=== PATIENT | female | born 1995 | race Caucasian/White ===

== ENCOUNTER 2017-08-14 13:21 | Emergency (ER) | payer MEDICARE, MEDICAID ==
[2017-08-14] MEDS ORDERED: Bacitracin Oint 1 GM U/D Packet TOP ONE (15:28)
--- NOTE | 2017-08-14 15:34 | EDM.PDOC ---
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 She is able to move her fingers without weakness and has normal sensation, but the laceration is long enough to require some suturing. She no longer has any intent of self-harm, the [facility] is comfortable taking her back. Onset: Sudden Location: Reports: Upper Extremity, Left Severity: Moderate - Related Data Allergies Allergy/AdvReac Type Severity Reaction Status Date / Time Sulfa (Sulfonamide Allergy Other Verified 08/14/17 14:17 Antibiotics) Home Meds: Home Meds Levothyroxine 25 mcg PO DAILY 08/14/17 [History] Lisdexamfetamine [Vyvanse] 60 mg PO DAILY 08/14/17 [History] QUEtiapine [SEROquel XR] 50 mg PO DAILY 08/14/17 [History] Sertraline [Zoloft] 200 mg PO DAILY 08/14/17 [History] lamoTRIgine [lamoTRIgine] 200 mg PO BID 08/14/17 [History] Past Medical History - Past Health History Medical/Surgical History: Denies Medical/Surgical History Psychiatric History: Reports: ADHD, Depression, Psych Hospitalization(s), Suicide Attempt Endocrine/Metabolic History: Reports: Hypothyroidism Social & Family History - Tobacco Use Smoking Status *Q: Light Tobacco Smoker Years of Tobacco use: 10 Packs/Tins Daily: 0.5 - Caffeine Use Caffeine Use: Reports: Soda - Recreational Drug Use Recreational Drug Type: Reports: Marijuana/Hashish ED ROS GENERAL - Review of Systems Review Of Systems: See Below Constitutional: Denies: Fever, Chills Respiratory: Denies: Shortness of Breath GI/Abdominal: Denies: Abdominal Pain, Nausea, Vomiting Neurological: Denies: Headache Psychiatric: Reports: Depression ED EXAM, SKIN/RASH Exam: See Below Exam Limited By: No Limitations General Appearance: Alert, No Apparent Distress Respiratory/Chest: No Respiratory Distress, Lungs Clear Extremities: Other (Exam is otherwise limited to the left arm. The patient has a 4 cm transverse laceration on the flexor surface of the wrist, through the dermis into the subcutaneous tissue and there appears to be some damage to the flexor tendons) Neurological: Alert, Oriented Psychiatric: Normal Affect, Normal Mood Course - Vital Signs Last Recorded V/S: Last Vital Signs Temp 97.9 F 08/14/17 14:18 Pulse 104 H 08/14/17 14:18 Resp 16 08/14/17 14:18 BP 113/78 08/14/17 14:18 Pulse Ox 99 08/14/17 14:18 - Orders/Labs/Meds Meds: Medications Discontinued Medications Generic Name Dose Route Start Last Admin Trade Name Jahq PRN Reason Stop Dose Admin Bacitracin 1 dose 08/14/17 15:28 08/14/17 15:31 Bacitracin Oint 1 Gm TOP 08/14/17 15:29 1 dose ONETIME ONE Administration Lidocaine HCl 5 ml 08/14/17 15:27 08/14/17 15:31 Xylocaine-Mpf 1% INJECT 08/14/17 15:28 5 ml ONETIME ONE Administration - Re-Assessments/Exams Free Text/Narrative Re-Assessment/Exam: 08/14/17 15:33 The area was anesthetized with 1% lidocaine, cleansed thoroughly with saline and explored, when there appeared to be tendon involvement surgery was consulted. 08/14/17 16:05 according to surgical consultation, the palmaris tendon does not need repair. 8 4-0 Ethilon sutures were used to close the laceration, and a dressing applied. Patient was placed on cephalexin 3 times a day because of the tendon involvement. She'll have the sutures removed in 9 days. Departure - Departure Time of Disposition: 16:24 Disposition: Home, Self-Care 01 Condition: Good Clinical Impression: Laceration of wrist, left Qualifiers: Encounter type: initial encounter Qualified Code(s): S61.512A - Laceration without foreign body of left wrist, initial encounter - Discharge Information Instructions: Laceration Care, Adult, [id number] Referrals: Hannah Best PA [Primary Care Provider] - Forms: ED Department Discharge Care Plan Goals: Keep wound covered and clean while healing, and have sutures removed in 9 days. Return sooner if concerns of infection or not healing satisfactorily. Take antibiotic 3 times a day until gone.
== END 2017-08-14 16:24 | disposition home or self-care (01) ==
LOC: JP.ED 13:21
DX: S61.512A Laceration without foreign body of left wrist, initial encounter (principal); F17.210 Nicotine dependence, cigarettes, uncomplicated; F90.9 Attention-deficit hyperactivity disorder, unspecified type; F41.9 Anxiety disorder, unspecified; E03.9 Hypothyroidism, unspecified; Z79.899 Other long term (current) drug therapy; Z88.2 Allergy status to sulfonamides; X78.9XXA Intentional self-harm by unspecified sharp object, initial encounter
CPT/HCPCS: 12002; 99283-25